=== PATIENT | female | born 1950 | race Caucasian/White ===

== ENCOUNTER 2019-05-03 07:16 | Day surgery (SDC) | payer MEDICARE, BC ==
[~2019-05-03 07:16] MED LIST: Midazolam 1 MG/ML 2 ML SDV ONE; fentaNYL 100 MCG/2 ML SDV ONE
[2019-05-03] MEDS ORDERED: fentaNYL 100 MCG/2 ML SDV IV ONE ×2 (07:55→07:56)
[2019-05-03] MEDS ORDERED: Midazolam 1 MG/ML 2 ML SDV IV ONE ×2 (07:56→07:57)
[2019-05-03] MEDS ORDERED: Dextrose 5%-0.45% NaCl 1,000 ML IV SCH (08:00)
--- NOTE | 2019-05-03 12:24 | OR ---
DATE: 05/03/2019 PROCEDURE: Esophagogastroduodenoscopy and multiple pinch biopsies. INSTRUMENT USED: [id number]-HQ190 Olympus video panendoscope. PREMEDICATIONS: No oral or topical anesthesia used. Fentanyl 100 mcg intravenous, Versed 2 mg intravenous. The procedure was done under pulse oximetry, BP recording, and senior advocate. INDICATION: The patient with long-standing heartburn, unexplained and not responsive to medical measures. Esophagogastroduodenoscopy is performed for detection of any active erosive lesions, Bergeron esophagus and/or malignancy also under consideration, H. pylori status to be determined, endoscopic hemostasis therapy if needed. The scope was passed with ease. Adequate visualization of the esophagus was made from proximal to distal areas. No upper esophageal lesions identified. No distal esophageal stricture. No uphill or downhill esophageal varices. No Zaira-Cisneros tear. No evidence of erosive esophagitis by Bibb criteria. Z-line was seen at around 35 cm distal to the oral verge and prominent 5 mm sized fold was noted, multiple pinch biopsies were obtained and sent for histopathology. Four-quadrant biopsies were also taken from the pink columnar epithelium at 35 cm distal to the oral verge and sent for any histopathologic evidence of intestinal metaplasia. No proximal gastric varices noted. Gastric fundus examination by retroflexion showed no polypoid lesions. No gastric ulcer, malignant mass, or vascular ectasia identified. Duodenal bulb showed no ulcer. Visualized second part of the duodenum was unremarkable. Multiple pinch biopsies were taken from the gastric antrum and proximal body and sent for PyloriTek test for H. pylori and histopathology. No bleeding was noted from any of the visualized areas at the completion of examination. Photographs were taken of the duodenal bulb, gastric antrum, fundus, and distal esophagus. IMPRESSION: Columnar-lined distal esophagus. The patient tolerated the procedure well. [facility] /[id number]
== END 2019-05-03 10:05 | disposition home or self-care (01) ==
LOC: DL.ENDO 07:16
PROVIDERS: ATTEND Internal Medicine Gastroenterology
DX: R12 Heartburn (principal); B96.81 Helicobacter pylori [H. pylori] as the cause of diseases classified elsewhere; I10 Essential (primary) hypertension; E78.5 Hyperlipidemia, unspecified; E66.09 Other obesity due to excess calories; M85.80 Other specified disorders of bone density and structure, unspecified site; F17.210 Nicotine dependence, cigarettes, uncomplicated; Z98.51 Tubal ligation status; Z90.49 Acquired absence of other specified parts of digestive tract; Z88.1 Allergy status to other antibiotic agents; Z68.31 Body mass index [BMI] 31.0-31.9, adult
CPT/HCPCS: 43239; 87077; J7042; J2250; J3010

== ENCOUNTER 2019-05-06 05:19 | Day surgery (SDC) | payer MEDICARE, BC ==
[2019-05-06] MEDS ORDERED: Midazolam 1 MG/ML 2 ML SDV IV ONE ×6 (05:20→06:40)
[2019-05-06] MEDS ORDERED: fentaNYL 100 MCG/2 ML SDV IV ONE ×3 (05:20→06:32)
[2019-05-06] MEDS ORDERED: Dextrose 5%-0.45% NaCl 1,000 ML IV SCH (06:00)
[2019-05-06] MEDS ORDERED: Sodium Chloride 0.9% 10 ML Syringe FLUSH PRN (06:00)
[2019-05-06] MEDS ORDERED: Midazolam 1 MG/ML 2 ML SDV ONE (06:13)
[2019-05-06] MEDS ORDERED: fentaNYL 100 MCG/2 ML SDV ONE (06:13)
--- NOTE | 2019-05-06 12:40 | OR ---
DATE: 05/06/2019 PROCEDURES: Total colonoscopy, NBI, cold snare polypectomy, and multiple pinch biopsies. INSTRUMENT USED: PCF-H190DL Olympus video colonoscope. PREMEDICATIONS: Fentanyl 100 mcg intravenous, Versed 3.5 mg intravenous, nasal O2 cannula. The procedure was done under pulse oximetry, BP recording, and school bus monitor. INDICATION: The patient with Hemoccult positive stools. Colonoscopic examination is done for detection of any polypoid lesions and removal, endoscopic hemostasis therapy if needed. DESCRIPTION OF PROCEDURE: Initial rectal exam showed external hemorrhoidal tags. Rigid anoscopy was unremarkable. The colonoscope was passed with ease. Few diverticula were noted in the distal left colon along with deformity. The scope was passed with ease up to the ileocecal area. Photographs were taken of the normal-appearing cecum, identified by landmarks of double-bulged ileocecal folds. No bleeding was noted from any of the visualized areas at the commencement of the examination. The bowel preparation was found to be adequate, Woodruff scale 2 in all the regions. In the proximal ascending colon, benign submucosal lipomatous lesion was noted. NBI views were obtained. Photographs were taken. Multiple pinch biopsies were obtained and sent for histopathology. No stricture. No vascular ectasia. No large isolated ulcerations seen. No evidence of diffuse inflammatory bowel disease in the form of friability, contact bleeding, or ulcerations. Probing the proximal sides of folds and flexures using adequate distention and clearing up the stool material, withdrawal of the scope was made. In the mid descending colon, 5 mm sized benign-appearing pedunculated polyp was noted, NBI views were obtained, photographs were taken, cold snare polypectomy was done, the tissue was retrieved and sent for histopathology. No bleeding was noted from any of the visualized areas at the completion of examination. IMPRESSION: 1. External hemorrhoids. 2. Benign submucosal ascending colon lesion. 3. Descending colon polyp. 4. Diverticulosis. The patient tolerated the procedure well. [facility] /[id number]
== END 2019-05-06 09:03 | disposition home or self-care (01) ==
LOC: DL.ENDO 05:19
PROVIDERS: ATTEND Internal Medicine Gastroenterology
DX: K57.31 Diverticulosis of large intestine without perforation or abscess with bleeding (principal); D12.4 Benign neoplasm of descending colon; D17.5 Benign lipomatous neoplasm of intra-abdominal organs; K64.4 Residual hemorrhoidal skin tags; I10 Essential (primary) hypertension; E78.5 Hyperlipidemia, unspecified; E66.09 Other obesity due to excess calories; F17.210 Nicotine dependence, cigarettes, uncomplicated; F41.1 Generalized anxiety disorder; M85.80 Other specified disorders of bone density and structure, unspecified site; N60.19 Diffuse cystic mastopathy of unspecified breast; Z88.1 Allergy status to other antibiotic agents; Z79.82 Long term (current) use of aspirin; Z68.31 Body mass index [BMI] 31.0-31.9, adult
CPT/HCPCS: 45380; 45385; J2250; J3010; J7042